=== PATIENT | female | born 1995 | race American Indian/Alaskan Native ===

== ENCOUNTER 2019-01-14 17:15 | Emergency (ER) | payer MEDICARE ==
[2019-01-14] MEDS ORDERED: ATIVAN IV ONE ×5 (17:22→17:43)
[2019-01-14] MEDS ORDERED: ATIVAN ONE ×2 (17:22→17:29)
[2019-01-14] MEDS ORDERED: MAGNESIUM SULFATE 4GM/100ML 4 GM/100 ML BAG IV ONE (17:26)
[2019-01-14] MEDS ORDERED: MAGNESIUM SULFATE 2GM/50ML 2 GM/50 ML BAG IV ONE (17:30)
[2019-01-14] MEDS ORDERED: APRESOLINE ONE (17:31)
[2019-01-14] MEDS ORDERED: VERSED IV PRN (17:42)
[2019-01-14 17:53] LABS: Alanine Aminotransferase 44 units/L (7-56); Albumin 3.6 g/dL (3.9-5); BUN/Creatinine Ratio 8; Blood Urea Nitrogen 4 mg/dL (7-17); Hemolysis Index 21
[2019-01-14] MEDS ORDERED: APRESOLINE IV ONE ×2 (17:53→18:34)
[2019-01-14] MEDS ORDERED: QUELICIN IV ONE (17:53)
[2019-01-14] MEDS ORDERED: MIDAZOLAM 100 MG in NACL 0.9% 80 ML IV SCH (18:00)
[2019-01-14] MEDS ORDERED: MAGNESIUM SULFATE 40GM/1000ML 40 GM/1,000 ML BAG IV SCH (18:00)
[2019-01-14 18:08] LABS: Hematocrit 29.5 % (30.3-42.9); Hemoglobin 9.9 gm/dl (10.1-14.3); Mean Corpuscular HGB Conc 34 % (30-34); Mean Corpuscular Volume 95 fl (79-97); Platelet Count 775 K/mm3 (140-440); Red Blood Count 3.12 M/mm3 (3.65-5.03)
[2019-01-14 18:10] LABS: Red Cell Distribution Width 27.4 % (13.2-15.2)
--- NOTE | 2019-01-14 18:15 | XRay Report ---
CHEST 1 VIEW, 01/14/2019 at 5:53 PM INDICATION: Endotracheal tube placement COMPARISON: None FINDINGS: Support devices: Endotracheal tube is present with tip approximately 1 cm above the level of the nahun na. Heart: The cardiac silhouette is moderately enlarged. Lungs/pleura: Faint bilateral parenchymal opacities are noted. There is a more focal area of parenchy mal disease in the left upper lobe. No large pleural effusion or pneumothorax is identified. Additional findings: No additional acute findings. IMPRESSION: 1. Placement of endotracheal tube as above. 2. Moderate enlargement of the cardiac silhouette. 3. Bilateral parenchymal disease suggestive of asymmetric pulmonary edema. Multifocal pneumonia could have a similar appearance. Signer Name: Nuzhat St MD Signed: 01/14/2019 6:10 PM Workstation Name: [id number]
--- NOTE | 2019-01-14 18:18 | Emergency Department Report ---
ED Altered Mental Status HPI - General Chief Complaint: Seizure Stated Complaint: RADHA Time Seen by Provider: 01/14/19 17:25 Source: family Mode of arrival: Stretcher Limitations: Altered Mental Status - History of Present Illness Initial Comments: 23-year-old female with history of sickle cell, 10 days , presents to ED with altered mental status. Friend states patient was driving the car when she began to complain of a headache. States patient took some Tylenol. Patient then said she was feeling funny, patient screamed out and then became unresponsive, and states her extremities were extended and locked. Patient was brought to the ER. Friend states patient had a 10 days ago at [facility] prior to patient's actual due date. Friend is unsure if patient had preeclampsia, but states she had severe swelling to her legs. Patient has no history of seizures. MD Complaint: altered mental status -: minutes(s) (10) Severity: severe Consistency of Symptoms: constant Context: unknown Associated Symptoms: headaches - Related Data Home Medications Medication Instructions Recorded Confirmed Last Taken Folic Acid [Folvite] 1 mg PO QDAY 11/17/15 11/17/15 11/17/15 Pnv No.95/Ferrous Fum/Folic AC 1 tab PO DAILY 11/17/15 11/17/15 11/17/15 [ Caplet] Previous Rx's Medication Instructions Recorded Last Taken Type Acetaminophen 650 mg PO QID PRN #30 tablet 06/18/18 Unknown Rx Allergies Allergy/AdvReac Type Severity Reaction Status Date / Time No Known Allergies Allergy Verified 06/12/15 18:49 ED Review of Systems ROS: Stated complaint: RADHA Other details as noted in HPI Comment: Unobtainable due to pts medical conditions ED Past Medical Hx - Past Medical History Previous Medical History?: Yes Hx Hypertension: No Hx Diabetes: No Hx Deep Vein Thrombosis: No Hx Renal Disease: No Hx Sickle Cell Disease: Yes Hx Seizures: No Hx Asthma: Yes Hx HIV: No Additional medical history: pre-eclampsia - Surgical History Past Surgical History?: Yes Hx Cholecystectomy: Yes Additional Surgical History: x 2 - Social History Smoking Status: Never Smoker Substance Use Type: None - Medications Home Medications: Home Medications Medication Instructions Recorded Confirmed Last Taken Type Folic Acid [Folvite] 1 mg PO QDAY 11/17/15 11/17/15 11/17/15 History Pnv No.95/Ferrous Fum/Folic AC 1 tab PO DAILY 11/17/15 11/17/15 11/17/15 History [ Caplet] Acetaminophen 650 mg PO QID PRN #30 tablet 06/18/18 Unknown Rx ED Physical Exam - General Limitations: Altered Mental Status General appearance: in distress - Head Head exam: Present: atraumatic, normocephalic - Eye Eye exam: Present: normal appearance - ENT ENT exam: Present: mucous membranes moist - Neck Neck exam: Present: normal inspection - Respiratory Respiratory exam: Present: rales - Cardiovascular Cardiovascular Exam: Present: regular rate, normal rhythm - GI/Abdominal GI/Abdominal exam: Present: soft, distended - Extremities Exam Extremities exam: Present: other (2+ pitting edema bilateral lower legs) - Neurological Exam Neurological exam: Present: other (unresponsive, extremities are extended, seizure activity noted) - Skin Skin exam: Present: warm, dry, intact, normal color ED Course Vital Signs 01/14/19 01/14/19 01/14/19 17:18 17:20 17:30 Pulse Rate 87 83 89 Respiratory 49 H 12 22 Rate Blood Pressure 168/100 166/91 O2 Sat by Pulse 90 99 100 Oximetry 01/14/19 01/14/19 01/14/19 17:46 18:00 18:26 Pulse Rate 79 87 80 Respiratory 15 16 21 Rate Blood Pressure 179/102 152/97 158/91 O2 Sat by Pulse 88 94 93 Oximetry 01/14/19 01/14/19 01/14/19 18:30 18:43 18:46 Pulse Rate 89 102 H 96 H Respiratory 18 25 H Rate Blood Pressure 150/86 150/86 150/86 O2 Sat by Pulse 91 98 Oximetry 01/14/19 01/14/19 19:00 19:16 Pulse Rate 92 H 102 H Respiratory 30 H 27 H Rate Blood Pressure 181/79 160/82 O2 Sat by Pulse 94 96 Oximetry - Reevaluation(s) Reevaluation #1: 01/14/19 18:17 Pt presents with what appears to be seizure activity. BP elevated. Given recent delivery, possibly ecclampsia. Hydralazine and mag sulfate bolus given. Pt given 3 doses of ativan 2 mg w/o complete resolution of seizures so decision was made to intubate the patient. Reevaluation #2: 01/14/19 19:32 Pt stable. [facility] currently at bedside. Mag, versed, and cardene drips running. - Consultations Consultation #1: 01/14/19 18:55 Spoke w/ [facility] Manuel clinical fellow. Will Life Flight pt to [facility]. Wants to add another 1g of keppra. Keep SBP less than 150. - Central Line Placement Right Femoral Consent Obtained: verbal consent (from mother at bedside) Patient Placed on Monitor/Pulse Ox: Yes MD Prep: mask, gown, gloves Central Line Prep: Chlorhexidine scrub Ultrasound Used for Placement: No Central Line Lumen Inserted: single Bloods Obtained for Lab: No Central Line Position: good blood return, all ports aspirated, flus, sutured in place with nyl Dressing Applied: Tegaderm Patient Tolerated Procedure: well Complications: hematoma at puncture site - Intubation Sedative: other (Ativan) Mg Given: 2 Paralytic: Succinylcholine Mg Given: 120 Laryngoscope: Floresita Size: 4 ET Tube Size: 7 Tube Secured Depth (cm): 22 Tube Secured Location: teeth Tube Placement Confirmation: visualized tube passing t, equal breath sounds bilat, no breath sounds over epi, confirmation by capnometr Patient Tolerated Procedure: well Intubation Complications: other (aspiration) - Lab Data Result diagrams: 01/14/19 17:30 01/14/19 17:30 Lab Results 01/14/19 01/14/19 01/14/19 Range/Units 17:27 17:30 17:30 WBC 20.4 H (4.5-11.0) K/mm3 RBC 3.12 L (3.65-5.03) M/mm3 Hgb 9.9 L (10.1-14.3) gm/dl Hct 29.5 L (30.3-42.9) % MCV 95 (79-97) fl MCH 32 (28-32) pg MCHC 34 (30-34) % RDW 27.4 H (13.2-15.2) % Plt Count 775 H (140-440) K/mm3 Lymph # Network Technical Analyst Add Manual Diff Complete Total Counted 100 Seg Neuts % (Manual) 55.0 (40.0-70.0) % Band Neutrophils % 0 % Lymphocytes % (Manual) 30.0 (13.4-35.0) % Reactive Lymphs % (Man) 0 % Monocytes % (Manual) 4.0 (0.0-7.3) % Eosinophils % (Manual) 8.0 H (0.0-4.3) % Basophils % (Manual) 2.0 H (0.0-1.8) % Metamyelocytes % 1.0 % Myelocytes % 0 % Promyelocytes % 0 % Blast Cells % 0 % Nucleated RBC % 4.0 H (0.0-0.9) % Seg Neutrophils # Man 11.2 H (1.8-7.7) K/mm3 Band Neutrophils # 0.0 K/mm3 Lymphocytes # (Manual) 6.1 H (1.2-5.4) K/mm3 Abs React Lymphs (Man) 0.0 K/mm3 Monocytes # (Manual) 0.8 (0.0-0.8) K/mm3 Eosinophils # (Manual) 1.6 H (0.0-0.4) K/mm3 Basophils # (Manual) 0.4 H (0.0-0.1) K/mm3 Metamyelocytes # 0.2 K/mm3 Myelocytes # 0.0 K/mm3 Promyelocytes # 0.0 K/mm3 Blast Cells # 0.0 K/mm3 WBC Morphology Not Reportable Hypersegmented Neuts Not Reportable Hyposegmented Neuts Not Reportable Hypogranular Neuts Not Reportable Smudge Cells Not Reportable Toxic Granulation Not Reportable Toxic Vacuolation Not Reportable Dohle Bodies Not Reportable Pelger-Huet Anomaly Not Reportable Hernán Rods Not Reportable Platelet Estimate Appears increased Clumped Platelets Not Reportable Plt Clumps, EDTA Not Reportable Large Platelets Few Giant Platelets Few Platelet Satelliting Not Reportable Plt Morphology Comment Not Reportable RBC Morphology Not Reportable Dimorphic RBCs Not Reportable Polychromasia 1+ Hypochromasia 2+ Poikilocytosis 2+ Anisocytosis 3+ Microcytosis 1+ Macrocytosis Not Reportable Spherocytes Not Reportable Pappenheimer Bodies Not Reportable Sickle Cells 2+ Target Cells Few Tear Drop Cells Not Reportable Ovalocytes Not Reportable Helmet Cells Not Reportable [place] Bodies Not Reportable [place] Rings Not Reportable Iron Cells Not Reportable Bite Cells Not Reportable Crenated Cell Not Reportable Elliptocytes Not Reportable Acanthocytes (Spur) Not Reportable Rouleaux Not Reportable Hemoglobin C Crystals Not Reportable Schistocytes Not Reportable Malaria parasites Not Reportable Rivera Bodies Not Reportable Hem Pathologist Commnt No PT (12.2-14.9) Sec. INR (0.87-1.13) APTT (24.2-36.6) Sec. POC ABG pH (7.35-7.45) POC ABG pCO2 (35-45) POC ABG pO2 (80-105) POC ABG HCO3 (22-26 mml/L) POC ABG Total CO2 (23-27mmol/L) POC ABG O2 Sat POC ABG Base Excess ((-2) - (+3)mmol/L) FiO2 % Sodium 140 (137-145) mmol/L Potassium 3.9 (3.6-5.0) mmol/L Chloride 103.3 (98-107) mmol/L Carbon Dioxide 20 L (22-30) mmol/L Anion Gap 21 mmol/L BUN 4 L (7-17) mg/dL Creatinine 0.5 L (0.7-1.2) mg/dL Estimated GFR > 60 ml/min BUN/Creatinine Ratio 8 % Glucose 120 H (65-100) mg/dL POC Glucose 118 H (70-105) Uric Acid 7.0 (3.5-7.6) mg/dL Calcium 9.0 (8.4-10.2) mg/dL Total Bilirubin 2.90 H (0.1-1.2) mg/dL AST 78 H (5-40) units/L ALT 44 (7-56) units/L Alkaline Phosphatase 157 H (35-129) units/L Lactate Dehydrogenase 535 H (91-180) units/L NT-Pro-B Natriuret Pep (0-450) pg/mL Total Protein 7.4 (6.3-8.2) g/dL Albumin 3.6 L (3.9-5) g/dL Albumin/Globulin Ratio 0.9 % Urine Color (Yellow) Urine Turbidity (Clear) Urine pH (5.0-7.0) Ur Specific [place] (1.003-1.030) Urine Protein (Negative) mg/dL Urine Glucose (UA) (Negative) mg/dL Urine Ketones (Negative) mg/dL Urine Blood (Negative) Urine Nitrite (Negative) Urine Bilirubin (Negative) Urine Urobilinogen (<2.0) mg/dL Ur Leukocyte Esterase (Negative) Urine WBC (Auto) (0.0-6.0) /HPF Urine RBC (Auto) (0.0-6.0) /HPF Urine Mucus /HPF 01/14/19 01/14/19 01/14/19 Range/Units 17:30 17:45 18:43 WBC (4.5-11.0) K/mm3 RBC (3.65-5.03) M/mm3 Hgb (10.1-14.3) gm/dl Hct (30.3-42.9) % MCV (79-97) fl MCH (28-32) pg MCHC (30-34) % RDW (13.2-15.2) % Plt Count (140-440) K/mm3 Lymph # Add Manual Diff Total Counted Seg Neuts % (Manual) (40.0-70.0) % Band Neutrophils % % Lymphocytes % (Manual) (13.4-35.0) % Reactive Lymphs % (Man) % Monocytes % (Manual) (0.0-7.3) % Eosinophils % (Manual) (0.0-4.3) % Basophils % (Manual) (0.0-1.8) % Metamyelocytes % % Myelocytes % % Promyelocytes % % Blast Cells % % Nucleated RBC % (0.0-0.9) % Seg Neutrophils # Man (1.8-7.7) K/mm3 Band Neutrophils # K/mm3 Lymphocytes # (Manual) (1.2-5.4) K/mm3 Abs React Lymphs (Man) K/mm3 Monocytes # (Manual) (0.0-0.8) K/mm3 Eosinophils # (Manual) (0.0-0.4) K/mm3 Basophils # (Manual) (0.0-0.1) K/mm3 Metamyelocytes # K/mm3 Myelocytes # K/mm3 Promyelocytes # K/mm3 Blast Cells # K/mm3 WBC Morphology Hypersegmented Neuts Hyposegmented Neuts Hypogranular Neuts Smudge Cells Toxic Granulation Toxic Vacuolation Dohle Bodies Pelger-Huet Anomaly Hernán Rods Platelet Estimate Clumped Platelets Plt Clumps, EDTA Large Platelets Giant Platelets Platelet Satelliting Plt Morphology Comment RBC Morphology Dimorphic RBCs Polychromasia Hypochromasia Poikilocytosis Anisocytosis Microcytosis Macrocytosis Spherocytes Pappenheimer Bodies Sickle Cells Target Cells Tear Drop Cells Ovalocytes Helmet Cells [place] Bodies [place] Rings Marian Cells Bite Cells Crenated Cell Elliptocytes Acanthocytes (Spur) Rouleaux Hemoglobin C Crystals Schistocytes Malaria parasites Rivera Bodies Hem Pathologist Commnt PT 14.1 (12.2-14.9) Sec. INR 1.12 (0.87-1.13) APTT 28.6 (24.2-36.6) Sec. POC ABG pH (7.35-7.45) POC ABG pCO2 (35-45) POC ABG pO2 (80-105) POC ABG HCO3 (22-26 mml/L) POC ABG Total CO2 (23-27mmol/L) POC ABG O2 Sat POC ABG Base Excess ((-2) - (+3)mmol/L) FiO2 % Sodium (137-145) mmol/L Potassium (3.6-5.0) mmol/L Chloride (98-107) mmol/L Carbon Dioxide (22-30) mmol/L Anion Gap mmol/L BUN (7-17) mg/dL Creatinine (0.7-1.2) mg/dL Estimated GFR ml/min BUN/Creatinine Ratio % Glucose (65-100) mg/dL POC Glucose (70-105) Uric Acid (3.5-7.6) mg/dL Calcium (8.4-10.2) mg/dL Total Bilirubin (0.1-1.2) mg/dL AST (5-40) units/L ALT (7-56) units/L Alkaline Phosphatase (35-129) units/L Lactate Dehydrogenase (91-180) units/L NT-Pro-B Natriuret Pep 986.5 H (0-450) pg/mL Total Protein (6.3-8.2) g/dL Albumin (3.9-5) g/dL Albumin/Globulin Ratio % Urine Color Yellow (Yellow) Urine Turbidity Clear (Clear) Urine pH 7.0 (5.0-7.0) Ur Specific [place] 1.011 (1.003-1.030) Urine Protein 100 mg/dl (Negative) mg/dL Urine Glucose (UA) 50 (Negative) mg/dL Urine Ketones Neg (Negative) mg/dL Urine Blood Sm (Negative) Urine Nitrite Neg (Negative) Urine Bilirubin Neg (Negative) Urine Urobilinogen < 2.0 (<2.0) mg/dL Ur Leukocyte Esterase Neg (Negative) Urine WBC (Auto) 2.0 (0.0-6.0) /HPF Urine RBC (Auto) 1.0 (0.0-6.0) /HPF Urine Mucus Few /HPF 01/14/19 Range/Units 19:05 WBC (4.5-11.0) K/mm3 RBC (3.65-5.03) M/mm3 Hgb (10.1-14.3) gm/dl Hct (30.3-42.9) % MCV (79-97) fl MCH (28-32) pg MCHC (30-34) % RDW (13.2-15.2) % Plt Count (140-440) K/mm3 Lymph # Add Manual Diff Total Counted Seg Neuts % (Manual) (40.0-70.0) % Band Neutrophils % % Lymphocytes % (Manual) (13.4-35.0) % Reactive Lymphs % (Man) % Monocytes % (Manual) (0.0-7.3) % Eosinophils % (Manual) (0.0-4.3) % Basophils % (Manual) (0.0-1.8) % Metamyelocytes % % Myelocytes % % Promyelocytes % % Blast Cells % % Nucleated RBC % (0.0-0.9) % Seg Neutrophils # Man (1.8-7.7) K/mm3 Band Neutrophils # K/mm3 Lymphocytes # (Manual) (1.2-5.4) K/mm3 Abs React Lymphs (Man) K/mm3 Monocytes # (Manual) (0.0-0.8) K/mm3 Eosinophils # (Manual) (0.0-0.4) K/mm3 Basophils # (Manual) (0.0-0.1) K/mm3 Metamyelocytes # K/mm3 Myelocytes # K/mm3 Promyelocytes # K/mm3 Blast Cells # K/mm3 WBC Morphology Hypersegmented Neuts Hyposegmented Neuts Hypogranular Neuts Smudge Cells Toxic Granulation Toxic Vacuolation Dohle Bodies Pelger-Huet Anomaly Hernán Rods Platelet Estimate Clumped Platelets Plt Clumps, EDTA Large Platelets Giant Platelets Platelet Satelliting Plt Morphology Comment RBC Morphology Dimorphic RBCs Polychromasia Hypochromasia Poikilocytosis Anisocytosis Microcytosis Macrocytosis Spherocytes Pappenheimer Bodies Sickle Cells Target Cells Tear Drop Cells Ovalocytes Helmet Cells [place] Bodies [place] Rings Marian Cells Bite Cells Crenated Cell Elliptocytes Acanthocytes (Spur) Rouleaux Hemoglobin C Crystals Schistocytes Malaria parasites Rivera Bodies Hem Pathologist Commnt PT (12.2-14.9) Sec. INR (0.87-1.13) APTT (24.2-36.6) Sec. POC ABG pH 7.350 (7.35-7.45) POC ABG pCO2 43.7 (35-45) POC ABG pO2 74 L (80-105) POC ABG HCO3 24.1 (22-26 mml/L) POC ABG Total CO2 25 (23-27mmol/L) POC ABG O2 Sat 94 POC ABG Base Excess -1 ((-2) - (+3)mmol/L) FiO2 100 % Sodium (137-145) mmol/L Potassium (3.6-5.0) mmol/L Chloride (98-107) mmol/L Carbon Dioxide (22-30) mmol/L Anion Gap mmol/L BUN (7-17) mg/dL Creatinine (0.7-1.2) mg/dL Estimated GFR ml/min BUN/Creatinine Ratio % Glucose (65-100) mg/dL POC Glucose (70-105) Uric Acid (3.5-7.6) mg/dL Calcium (8.4-10.2) mg/dL Total Bilirubin (0.1-1.2) mg/dL AST (5-40) units/L ALT (7-56) units/L Alkaline Phosphatase (35-129) units/L Lactate Dehydrogenase (91-180) units/L NT-Pro-B Natriuret Pep (0-450) pg/mL Total Protein (6.3-8.2) g/dL Albumin (3.9-5) g/dL Albumin/Globulin Ratio % Urine Color (Yellow) Urine Turbidity (Clear) Urine pH (5.0-7.0) Ur Specific [place] (1.003-1.030) Urine Protein (Negative) mg/dL Urine Glucose (UA) (Negative) mg/dL Urine Ketones (Negative) mg/dL Urine Blood (Negative) Urine Nitrite (Negative) Urine Bilirubin (Negative) Urine Urobilinogen (<2.0) mg/dL Ur Leukocyte Esterase (Negative) Urine WBC (Auto) (0.0-6.0) /HPF Urine RBC (Auto) (0.0-6.0) /HPF Urine Mucus /HPF - Radiology Data Radiology results: report reviewed, image reviewed - Medical Decision Making 23-year-old female presents to ED with altered mental status. Patient appeared to be actively seizing upon arrival. History was given from patient's friend, stated patient 10 days , baby was delivered prior to actual due date. It is unclear the patient was diagnosed with preeclampsia, however her friends and mother states patient has had severe swelling in her legs. Today, patient was driving and began to complain of a headache. Patient's friend reports the patient then screamed out and became unresponsive. Patient was driven to the ED by her friends. On arrival patient was actively having a seizure, blood pressure was elevated 170s/100s. Patient has 2+ pitting edema to bilateral lower legs. Patient was immediately given Ativan 2 mg, hydralazine 5 mg. Patient continued to seize and was given another dose of Ativan 2 mg. Magnesium sulfate 4 g bolus was given, followed drip. Patient continued to seize, so decision was made to intubate. Patient received another 2 mg of Ativan prior to intubation. Versed drip utilized for sedation and seizure treatment. Patient was transported to CT, which showed large intraventricular hemorrhage with hydrocephalus. Patient was given a bolus of 1 g of Keppra, cardene drip also ordered. I contacted the neuro clinical fellow at [facility], Dr. Fitch. He advised to give an additional gram of Keppra for a total of 2 g. Systolic blood pressure goal of less than 150. Patient will be airlifted to [facility]. - Differential Diagnosis eeclampsia, intracranial bleed, HTN emergency Critical Care Time: Yes Critical care time in (mins) excluding proc time.: 70 Critical care attestation.: If time is entered above; I have spent that time in minutes in the direct care of this critically ill patient, excluding procedure time. Critical Care Time: 70 minutes ED Disposition Clinical Impression: Eclampsia, Intraventricular hemorrhage, Status epilepticus, Pulmonary edema Disposition: DC/TX-70 ANOTHER TYPE HLTHCARE Is pt being admited?: No Condition: Stable Instructions: Pulmonary Edema (ED) Referrals: YVON DON MD [Primary Care Provider] - 3-5 Days Time of Disposition: 18:56
[2019-01-14] MEDS ORDERED: KEPPRA 1,000 MG/NS 0.75% 100ML 1,000 MG/100 ML BAG IV ONE ×2 (18:31→19:00)
[2019-01-14] MEDS ORDERED: KEPPRA 1,000 MG in NACL 0.9% 100 ML IV ONE ×2 (18:54→19:00)
--- NOTE | 2019-01-14 18:54 | Cat Scan Report ---
CT head/brain wo con INDICATION / CLINICAL INFORMATION: 23 years Female; MAIN: STAT READ PLEASE CALL #[phone] seizure PT IS ON VENT NO OLD CT. TECHNIQUE: Thin cut axial images obtained to the brain. Sagittal and coronal reconstructions performed. All CT s cans at this location are performed using CT dose reduction for ALARA by means of automated exposure control. COMPARISON: None available. FINDINGS: Large amount of intraventricular blood is seen. Left lateral ventricle demonstrates significant blood products, as well as the third ventricle and fourth ventricles. Less blood products are seen in the right lateral ventricle. No definitive source for patient's hemorrhage identified. There is a moderate component of hydrocephalus and early transependymal flow of CSF may be present. Quadrigeminal plate cistern is partially visualized-no evidence of transtentorial herniation. The sup rasellar cistern is decreased in size-patient may be at risk for uncal herniation, if findings progre ss. 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 Mild, nonspecific white matter disease suggested in the left cerebral hemisphere. No other signs of hemorrhage appreciated. The patient is intubated. Secretions are seen in the nasopharynx and posterior nasal airway. Mild to moderate mucosal thickening noted in the ethmoids. IMPRESSION: 1. Intraventricular hemorrhage and hydrocephalus as described above. This is a positive critical value. The exam was completed at 5:30 PM on 01/14/2019. Dr. Tabor was notif ied of these findings at the time of interpretation-5:45 PM on the same day. Signer Name: Ector Tobar MD, III Signed: 01/14/2019 6:50 PM Workstation Name: Personal Estate ManagerFORMERLY [facility]UN[facility] HOSPITALGITRStony [facility]
[2019-01-14] MEDS ORDERED: CARDENE 50 MG in NACL 0.9% 250ML 230 ML IV SCH (19:00)
[2019-01-14 19:05] LABS: INR 1.12 (0.87-1.13); Partial Thromboplastin Time 28.6 Sec. (24.2-36.6)
[2019-01-14 19:21] LABS: Total Cells Counted 100
[2019-01-14 19:30] LABS: Anisocytosis 3+; Hypochromasia 2+; Sickle Cells 2+
[2019-01-14 19:31] LABS: Poikilocytosis 2+
[2019-01-14 19:32] LABS: Giant Platelets Few; Large Platelets Few; Platelet Estimate Appears Increased; Target Cells Few
[2019-01-14 19:42] VITALS: BP 160/82
[2019-01-14 20:13] LABS: Bilirubin,Urine NEG (Negative); Blood,Urine SM (Negative); Color,Urine Yellow (Yellow); Mucus,Urine FEW /HPF; Urobilinogen,Urine < 2.0 mg/dL (<2.0)
[2019-01-15] MEDS ORDERED: QUELICIN ONE (11:23)
== END 2019-01-14 20:00 | disposition other institution (70) ==
LOC: ED 17:15
DX: O99.43 Diseases of the circulatory system complicating the puerperium (principal); I61.5 Nontraumatic intracerebral hemorrhage, intraventricular; O90.89 Other complications of the puerperium, not elsewhere classified; J81.1 Chronic pulmonary edema; O15.2 Eclampsia complicating the puerperium; O99.355 Diseases of the nervous system complicating the puerperium; G40.801 Other epilepsy, not intractable, with status epilepticus; O99.53 Diseases of the respiratory system complicating the puerperium; J45.909 Unspecified asthma, uncomplicated; Z90.49 Acquired absence of other specified parts of digestive tract; Z79.899 Other long term (current) drug therapy
CPT/HCPCS: 31500; 36415; 36556; 70450; 71045; 80053; 81001; 82803; 82962; 83615; 83880; 84550; 85007; 85025; 85610; 85730; 87040; 96365; 96375; 96376; 99291; J0360; J1953; J2060; J2250; J3475; J7050; 94002; 96367; J0330